=== PATIENT | male | born 1975 | race Caucasian/White ===

== ENCOUNTER 2019-07-01 21:16 | Emergency (ER) | payer OTHER ==
[~2019-07-01] VITALS: Ht 185.4 cm; Wt 118.2 kg
[~2019-07-01 21:16] MED LIST: LIDOcaine 1% 30ml preserv. free vial ONE
--- NOTE | 2019-07-01 21:56 | NUR ---
PT TAKEN STRAIGHT BACK TO ROOM AFTER EKG. HE REPORTS THE SYMPTOMS ARE WORSENING (RIVERA, UNABLE TO FOCUS CLEARLY, WEAK AND DIZZY). DR. CARPENTER UPDATED OF PT. PIV IN PLACE, LABS DRAWN. GIRLFRIEND REMAINS AT BEDSIDE.
[2019-07-01] MEDS ORDERED: SUMAtriptan succ. 6 MG/0.5ml vial SQ ONE (22:05)
[2019-07-01] MEDS ORDERED: ketorolac trometh. 30mg/ml inj. IV ONE (22:10)
[2019-07-01] MEDS ORDERED: proCHLORperazine 10 MG/2 ml inj IV ONE (22:10)
[2019-07-01] MEDS ORDERED: meclizine 12.5mg tablet PO ONE (22:10)
[2019-07-01 22:22] LABS: ALANINE AMINOTRANSFERASE 34 U/L (12-78); ALBUMIN 4.5 G/DL (3.4-5.0); ALBUMIN/GLOBULIN RATIO 1.2 (1.1-1.5); ALKALINE PHOSPHATASE 93 IU/L (46-116); ANION GAP 10 (8-16); ASPARTATE AMINO TRANSFERASE 24 U/L (10-37); BASOPHILS # (AUTO) 0.1 X10'3 (0-0.2); BASOPHILS % (AUTO) 0.5 % (0-1); BLOOD UREA NITROGEN 12 MG/DL (7-18); BUN/CREATININE RATIO 11.8 (5.4-32.0); CALCIUM 9.4 MG/DL (8.5-10.1); CHLORIDE 102 MMOL/L (99-107); CREATININE 1.02 MG/DL (0.60-1.10); EOSINOPHILS # (AUTO) 0.4 X10'3 (0-0.9); EOSINOPHILS % (AUTO) 3.6 % (0-6); GLUCOSE 110 MG/DL (70-104); HEMATOCRIT 48.7 % (42.0-52.0); HEMOGLOBIN 16.7 g/dl (14.0-17.9); LYMPHOCYTES # (AUTO) 3.4 X10'3 (1.1-4.8); LYMPHOCYTES % (AUTO) 27.5 % (21-51); MEAN CORPUSCULAR HEMOGLOBIN 28.2 PG (27.0-31.0); MEAN CORPUSCULAR HGB CONC 34.3 g/dL (33.0-36.5); MEAN CORPUSCULAR VOLUME 82.2 FL (78-98); MEAN PLATELET VOLUME 8.9 FL (7.4-10.4); MONOCYTES % (AUTO) 7.8 % (2-12); NEUTROPHILS # (AUTO) 7.4 X10'3 (1.8-7.7); NEUTROPHILS % (AUTO) 60.6 % (42-75); PLATELET COUNT 285 X10'3 (140-440); POTASSIUM 3.2 MMOL/L (3.5-5.1); RED BLOOD COUNT 5.92 X10'6 (4.70-6.10); RED CELL DISTRIBUTION WIDTH 12.7 % (11.5-14.5); SODIUM 139 MMOL/L (135-145); TOTAL CARBON DIOXIDE 26.6 MMOL/L (24-32); TOTAL PROTEIN 8.4 G/DL (6.4-8.2); WHITE BLOOD COUNT 12.2 X10'3 (4.5-11.0); eGFR 80 ML/MIN
[2019-07-01] MEDS ORDERED: normal saline 1000ml 1,000 ML IV ONE (22:30)
[2019-07-01 23:56] VITALS: BP 166/110
== END 2019-07-01 23:59 | disposition home or self-care (01) ==
LOC: ER 21:17
DX: I10 Essential (primary) hypertension (principal); R42 Dizziness and giddiness; Z88.8 Allergy status to other drugs, medicaments and biological substances
CPT/HCPCS: 36415; 70450; 71045; 80053; 84484; 85025; 93005; 96361; 96372; 96374; 96375; 99284; J0780; J1885; J2001; J7030; J8597; 96376; J3030